=== PATIENT | male | born 1975 | race Caucasian/White ===

== ENCOUNTER 2017-07-21 15:29 | Inpatient (IN) | payer OTHER ==
[2017-07-21 16:25] VITALS: BMI 31.5
--- NOTE | 2017-07-21 16:43 | HP ---
COWS - Scale Resting Pulse: 1= [place] 81-100 Sweatin=Flushed/Facial Moisture Restless Observation: 1= Difficult to Sit Still Pupil Size: 2= Moderately Dilated Bone or Joint Aches: 1= Mild Discomfort Runny Nose/ Eye Tearin= Runny Nose/Eyes GI Upset > 30mins: 1= Stomach Cramp Tremor Observation: 1= Tremor [place], Not Seen Yawning Observation: 0= None Anxiety or Irritability: 2=Irritable/Anxious Goose Flesh Skin: 0=Smooth Skin COWS Score: 13 Admission [facility] Chief Complaint: Withdrawal sx. Allergies/Adverse Reactions: Allergies Allergy/AdvReac Type Severity Reaction Status Date / Time No Known Allergies Allergy Verified 07/21/17 16:38 History of Present Illness: 41 y/o man with a long hx. of opioid dependence is admitted for detox. Pt. denies previous detox. Pt. reports using Oxycodone since age 26 for pain And heroin started 5 yrs. ago. Exam Limitations: No Limitations - Ebola screening Have you traveled outside of the country in the last 21 days: No Have you had contact with anyone from an Ebola affected area: No Have you been sick,other than usual withdrawal symptoms: No Do you have a fever: No - Review of Systems Constitutional: Diaphoresis EENT: reports: Nose Congestion Respiratory: reports: No Symptoms reported Cardiac: reports: No Symptoms Reported GI: reports: Nausea, Abdominal cramping : reports: No Symptoms Reported Musculoskeletal: reports: Back Pain, Joint Pain Integumentary: reports: Sweating Neuro: reports: Tingling, Tremors Endocrine: reports: No Symptoms Reported Hematology: reports: No Symptoms Reported Psychiatric: reports: No Sypmtoms Reported Other Systems: Reviewed and Negative Patient History - Patient Medical History Hx Anemia: No Hx Asthma: No Hx Chronic Obstructive Pulmonary Disease (COPD): No Hx Cancer: No Hx Cardiac Disorders: No Hx Congestive Heart Failure: No Hx Hypertension: No Hx Hypercholesterolemia: No Hx Pacemaker: No HX Cerebrovascular Accident: No Hx Seizures: No Hx Dementia: No Hx Diabetes: No Hx Gastrointestinal Disorders: No Hx Liver Disease: No Hx Genitourinary Disorders: No Hx Sexually Transmitted Disorders: No Hx Renal Disease (ESRD): No Hx Thyroid Disease: No Hx Human Immunodeficiency Virus (HIV): No Hx Hepatitis C: No Hx Depression: No Hx Suicide Attempt: No Hx Bipolar Disorder: No Hx Schizophrenia: No - Patient Surgical History Past Surgical History: Yes Hx Breast Surgery: Yes (Gynecomastia) - PPD History Previous Implant?: Yes Documented Results: Negative w/o proof Implanted On Prior [facility] Admission?: No PPD to be Administered?: Yes - Smoking Cessation Smoking history: Current every day smoker Aproximately how many cigarettes per day: 10 Hx Chewing Tobacco Use: No Initiated information on smoking cessation: Yes 'Breaking Loose' booklet given: 07/21/17 - Substance & Tx. History Hx Alcohol Use: No Hx Substance Use: Yes Substance Use Type: Heroin Hx Substance Use Treatment: No - Substances Abused Heroin Route: Inhalation Frequency: Daily Amount used: 20-30 bags Age of first use: 36 Date of Last Use: 07/20/17 Oxycontin Route: Oral Frequency: Daily Amount used: 7 tabs of 30mg Age of first use: 26 Date of Last Use: 07/18/17 Family Disease History - Family Disease History Family History: Denies Admission Physical Exam [facility] - Vital Signs Vital Signs: Vital Signs - 24 hr 07/21/17 16:21 Temperature 97.1 F L Pulse Rate 93 H Respiratory 18 Rate Blood Pressure 139/78 - Physical General Appearance: Yes: Tremorous, Irritable, Sweating, Anxious HEENTM: Yes: Nasal Congestion, Rhinorrhea Respiratory: Yes: Chest Non-Tender, Lungs Clear, Normal Breath Sounds Neck: Yes: Supple Breast: Yes: Breast Exam Deferred Cardiology: Yes: Regular Rhythm, Regular Rate, S1, S2 Abdominal: Yes: Normal Bowel Sounds, Non Tender Genitourinary: Yes: Within Normal Limits Back: Yes: Within Normal Limits Musculoskeletal: Yes: Within Normal Limits Extremities: Yes: Tremors Neurological: Yes: Fully Oriented, Alert Integumentary: Yes: Diaphoresis Lymphatic: Yes: Within Normal Limits - Diagnostic (1) Opioid dependence with withdrawal Current Visit: Yes Status: Acute Cleared for Admission [facility] - Detox or Rehab [facility] Level of Care: Medically Managed Detox Regimen/Protocol: Methadone [facility] Breath Alcohol Content Breath Alcohol Content: 0 Urine Drug Screen - Results Drug Screen Negative: No Urine Drug Screen Results: EMMANUEL-Cocaine, OPI-Opiates, MTD-Methadone, OXY- Oxycodone
[2017-07-21] MEDS ORDERED: IBUPROFEN 400 MG TABLET (FP) PO PRN (17:00)
[2017-07-21] MEDS ORDERED: P-EPHED 60MG/TRIPROLIDI 2.5MG TABLET PO PRN (17:00)
[2017-07-21] MEDS ORDERED: guaiFENesin/D-METHORPHAN HB 10 ML UNIT-DOSE CUPS PO PRN (17:00)
[2017-07-21] MEDS ORDERED: MAGNESIUM CITRATE 300 ML BOTTLE PO PRN (17:00)
[2017-07-21] MEDS ORDERED: NICOTINE POLACRILEX 2 MG GUM BC PRN (17:00)
[2017-07-21] MEDS ORDERED: MAGNESIUM HYDROX 2400MG/30ML ORAL SUSPENSION 30 ML CUP PO PRN (17:00)
[2017-07-21] MEDS ORDERED: MAG HYDROX/AL HYDROX/SIMETH 30 ML UNIT-DOSE CUP PO PRN (17:00)
[2017-07-21] MEDS ORDERED: METHADONE HCL 10 MG TABLET (FOR DETOX USE ONLY) PO ONE ×2 (17:00→23:00)
[2017-07-21] MEDS ORDERED: LOPERAMIDE HCL 2 MG CAPSULE PO PRN (17:00)
[2017-07-21] MEDS ORDERED: MENTHOL/PHENOL 1 EACH UD MM PRN (17:00)
[2017-07-21] MEDS ORDERED: cloNIDine HCL 0.1 MG TABLET PO ONE (17:02)
[2017-07-21] MEDS ORDERED: METHADONE HCL 10 MG TABLET ONE (19:09)
[2017-07-21] MEDS: NICOTINE 21 MG/24 HOURS TOPICAL PATCH TD SCH (19:17)
[2017-07-21] MEDS: CYCLOBENZAPRINE HCL 10 MG TABLET (FP) PO SCH ×2 (19:18→22:28)
[2017-07-21] MEDS: diazePAM 5 MG TABLET PO PRN (19:19)
[2017-07-21] MEDS: cloNIDine HCL 0.1 MG TABLET PO SCH ×2 (19:20→22:28)
[2017-07-21] MEDS: THIAMINE HCL 100 MG TABLET (FP) PO SCH (22:28)
[2017-07-21] MEDS: hydrOXYzine PAMOATE 50 MG CAPSULE (FP) PO PRN (22:30)
[2017-07-22] MEDS: ACETAMINOPHEN 325 MG TABLET (FP) PO PRN (01:05)
[2017-07-22] MEDS: diazePAM 5 MG TABLET PO PRN ×4 (01:06→23:36)
[2017-07-22 01:48] LABS: URINE APPEARANCE CLEAR; URINE BILIRUBIN NEGATIVE (NEGATIVE); URINE BLOOD NEGATIVE (NEGATIVE); URINE COLOR STRAW; URINE GLUCOSE (UA) NEGATIVE (NEGATIVE); URINE KETONE NEGATIVE (NEGATIVE); URINE NITRITE NEGATIVE (NEGATIVE); URINE PROTEIN NEGATIVE (NEGATIVE); URINE UROBILINOGEN NEGATIVE mg/dL (0.2-1.0)
[2017-07-22] MEDS: CYCLOBENZAPRINE HCL 10 MG TABLET (FP) PO SCH ×3 (06:14→22:16)
--- NOTE | 2017-07-22 09:29 | EKG ---
Test Reason : Blood Pressure : / mmHG Vent. Rate : 077 BPM Atrial Rate : 077 BPM P-R Int : 150 ms QRS Dur : 084 ms QT Int : 368 ms P-R-T Axes : 066 035 052 degrees QTc Int : 416 ms SINUS RHYTHM WITH MARKED SINUS ARRHYTHMIA POSSIBLE LEFT ATRIAL ENLARGEMENT BORDERLINE ECG NO PREVIOUS ECGS AVAILABLE Confirmed by BENEDICTO CAMP MD ([id number]) on 07/22/2017 9:29:08 AM Referred By: Confirmed By:BENEDICTO CAMP MD
--- NOTE | 2017-07-22 09:43 | EKG ---
Test Reason : Blood Pressure : / mmHG Vent. Rate : 064 BPM Atrial Rate : 064 BPM P-R Int : 154 ms QRS Dur : 096 ms QT Int : 438 ms P-R-T Axes : 063 031 050 degrees QTc Int : 451 ms NORMAL SINUS RHYTHM WITH SINUS ARRHYTHMIA NORMAL ECG WHEN COMPARED WITH ECG OF 21-JUL-2017 20:07, NO SIGNIFICANT CHANGE WAS FOUND Confirmed by BENEDICTO CAMP MD ([id number]) on 07/22/2017 9:42:53 AM Referred By: Confirmed By:BENEDICTO CAMP MD
[2017-07-22] MEDS ORDERED: METHADONE HCL 10 MG TABLET (FOR DETOX USE ONLY) PO ONE (10:00)
[2017-07-22 10:16] LABS: MCH 28.8 pg (25.7-33.7); MCHC 33.7 g/dl (32.0-35.9); MEAN CELL VOLUME 85.6 fl (80-96); MEAN PLT VOLUME 8.8 fl (7.5-11.1); PLATELET COUNT 230 K/MM3 (134-434); RDW 13.2 % (11.9-15.9); WHITE BLOOD COUNT 10.6 K/mm3 (4.0-10.0)
[2017-07-22] MEDS: NICOTINE 21 MG/24 HOURS TOPICAL PATCH TD SCH (10:25)
[2017-07-22] MEDS: PRENATAL VITAMINS W/ FOLIC ACID TABLET (FP) PO SCH (10:25)
[2017-07-22] MEDS: cloNIDine HCL 0.1 MG TABLET PO SCH ×2 (10:25→22:16)
[2017-07-22 10:40] LABS: ALK PHOS 69 U/L (45-117); ANION GAP 9 (8-16); BILIRUBIN,TOTAL 0.4 mg/dL (0.2-1.0); CO2 29 mmol/L (21-32); GLUCOSE,RANDOM 107 mg/dL (74-106); SGOT/AST 16 U/L (15-37); SGPT/ALT 27 U/L (12-78); TOT PROT 7.6 g/dl (6.4-8.2)
--- NOTE | 2017-07-22 11:19 | PN ---
BHS COWS - Scale Resting Pulse: 0= [place] 80 or Below Sweatin= Chills/Flushing Restless Observation: 3= Extraneous Movement Pupil Size: 2= Moderately Dilated Bone or Joint Aches: 4=Acute Joint/Muscle Pain Runny Nose/ Eye Tearin= Nasal Congestion GI Upset > 30mins: 1= Stomach Cramp Tremor Observation of Outstretched Hands: 1= Tremor [place], Not Seen Yawning Observation: 1= 1-2x During Session Anxiety or Irritability: 1=Feels Anxious/Irritable Goose Flesh Skin: 0=Smooth Skin COWS Score: 15 BHS Progress Note (SOAP) Subjective: ANXIETY,SWEATS,MUSCLE ACHES,FATIGUE. Objective: 07/22/17 11:18 Vital Signs Temperature 96.6 F L 07/22/17 09:29 Pulse Rate 80 07/22/17 09:29 Respiratory Rate 18 07/22/17 09:29 Blood Pressure 132/78 07/22/17 09:29 O2 Sat by Pulse Oximetry (%) Laboratory Last Values WBC 10.6 K/mm3 (4.0-10.0) H 07/22/17 07:00 RBC 4.82 M/mm3 (4.00-5.60) 07/22/17 07:00 Hgb 13.9 GM/dL (11.7-16.9) 07/22/17 07:00 Hct 41.3 % (35.4-49) 07/22/17 07:00 MCV 85.6 fl (80-96) 07/22/17 07:00 MCH 28.8 pg (25.7-33.7) 07/22/17 07:00 MCHC 33.7 g/dl (32.0-35.9) 07/22/17 07:00 RDW 13.2 % (11.9-15.9) 07/22/17 07:00 Plt Count 230 K/MM3 (134-434) 07/22/17 07:00 MPV 8.8 fl (7.5-11.1) 07/22/17 07:00 Sodium 141 mmol/L (136-145) 07/22/17 07:00 Potassium 3.7 mmol/L (3.5-5.1) 07/22/17 07:00 Chloride 103 mmol/L (98-107) 07/22/17 07:00 Carbon Dioxide 29 mmol/L (21-32) 07/22/17 07:00 Anion Gap 9 (8-16) 07/22/17 07:00 BUN 9 mg/dL (7-18) 07/22/17 07:00 Creatinine 1.0 mg/dL (0.7-1.3) 07/22/17 07:00 Creat Clearance w eGFR > 60 (>60) 07/22/17 07:00 Random Glucose 107 mg/dL (74-106) H 07/22/17 07:00 Calcium 9.0 mg/dL (8.5-10.1) 07/22/17 07:00 Total Bilirubin 0.4 mg/dL (0.2-1.0) 07/22/17 07:00 AST 16 U/L (15-37) 07/22/17 07:00 ALT 27 U/L (12-78) 07/22/17 07:00 Alkaline Phosphatase 69 U/L (45-117) 07/22/17 07:00 Total Protein 7.6 g/dl (6.4-8.2) 07/22/17 07:00 Albumin 4.0 g/dl (3.4-5.0) 07/22/17 07:00 Urine Color Straw 07/21/17 18:33 Urine Appearance Clear 07/21/17 18:33 Urine pH 7.0 (5.0-8.0) 07/21/17 18:33 Ur Specific [place] 1.005 (1.001-1.035) 07/21/17 18:33 Urine Protein Negative (NEGATIVE) 07/21/17 18:33 Urine Glucose (UA) Negative (NEGATIVE) 07/21/17 18:33 Urine Ketones Negative (NEGATIVE) 07/21/17 18:33 Urine Blood Negative (NEGATIVE) 07/21/17 18:33 Urine Nitrite Negative (NEGATIVE) 07/21/17 18:33 Urine Bilirubin Negative (NEGATIVE) 07/21/17 18:33 Urine Urobilinogen Negative mg/dL (0.2-1.0) 07/21/17 18:33 Assessment: 07/22/17 11:18 WITHDRAWAL SX Plan: CONTINUE DETOX INCREASE PO FLUIDS.
[2017-07-22 11:55] LABS: URINE LEUK ESTERASE Negative (NEGATIVE)
[2017-07-22] MEDS: THIAMINE HCL 100 MG TABLET (FP) PO SCH (22:16)
[2017-07-23] MEDS: CYCLOBENZAPRINE HCL 10 MG TABLET (FP) PO SCH ×3 (05:51→22:35)
[2017-07-23] MEDS ORDERED: METHADONE HCL 5 MG TABLET (FOR DETOX USE ONLY) PO ONE (10:00)
[2017-07-23] MEDS: cloNIDine HCL 0.1 MG TABLET PO SCH ×2 (10:28→22:36)
[2017-07-23] MEDS: NICOTINE 21 MG/24 HOURS TOPICAL PATCH TD SCH (10:28)
[2017-07-23] MEDS: PRENATAL VITAMINS W/ FOLIC ACID TABLET (FP) PO SCH (10:28)
--- NOTE | 2017-07-23 11:57 | PN ---
BHS COWS - Scale Resting Pulse: 1= [place] 81-100 Sweatin= Chills/Flushing Restless Observation: 3= Extraneous Movement Pupil Size: 0= Normal to Room Light Bone or Joint Aches: 4=Acute Joint/Muscle Pain Runny Nose/ Eye Tearin= Nasal Congestion GI Upset > 30mins: 1= Stomach Cramp Tremor Observation of Outstretched Hands: 1= Tremor [place], Not Seen Yawning Observation: 1= 1-2x During Session Anxiety or Irritability: 2=Irritable/Anxious Goose Flesh Skin: 0=Smooth Skin COWS Score: 15 S Progress Note (SOAP) Subjective: ANXIETY,BACKACHE/LEG PAINS/CRAMPS. Objective: 07/23/17 11:57 Vital Signs Temperature 96.5 F L 07/23/17 10:22 Pulse Rate 94 H 07/23/17 10:22 Respiratory Rate 18 07/23/17 10:22 Blood Pressure 138/78 07/23/17 10:22 O2 Sat by Pulse Oximetry (%) Laboratory Last Values WBC 10.6 K/mm3 (4.0-10.0) H 07/22/17 07:00 RBC 4.82 M/mm3 (4.00-5.60) 07/22/17 07:00 Hgb 13.9 GM/dL (11.7-16.9) 07/22/17 07:00 Hct 41.3 % (35.4-49) 07/22/17 07:00 MCV 85.6 fl (80-96) 07/22/17 07:00 MCH 28.8 pg (25.7-33.7) 07/22/17 07:00 MCHC 33.7 g/dl (32.0-35.9) 07/22/17 07:00 RDW 13.2 % (11.9-15.9) 07/22/17 07:00 Plt Count 230 K/MM3 (134-434) 07/22/17 07:00 MPV 8.8 fl (7.5-11.1) 07/22/17 07:00 Sodium 141 mmol/L (136-145) 07/22/17 07:00 Potassium 3.7 mmol/L (3.5-5.1) 07/22/17 07:00 Chloride 103 mmol/L (98-107) 07/22/17 07:00 Carbon Dioxide 29 mmol/L (21-32) 07/22/17 07:00 Anion Gap 9 (8-16) 07/22/17 07:00 BUN 9 mg/dL (7-18) 07/22/17 07:00 Creatinine 1.0 mg/dL (0.7-1.3) 07/22/17 07:00 Creat Clearance w eGFR > 60 (>60) 07/22/17 07:00 Random Glucose 107 mg/dL (74-106) H 07/22/17 07:00 Calcium 9.0 mg/dL (8.5-10.1) 07/22/17 07:00 Total Bilirubin 0.4 mg/dL (0.2-1.0) 07/22/17 07:00 AST 16 U/L (15-37) 07/22/17 07:00 ALT 27 U/L (12-78) 07/22/17 07:00 Alkaline Phosphatase 69 U/L (45-117) 07/22/17 07:00 Total Protein 7.6 g/dl (6.4-8.2) 07/22/17 07:00 Albumin 4.0 g/dl (3.4-5.0) 07/22/17 07:00 Urine Color Straw 07/21/17 18:33 Urine Appearance Clear 07/21/17 18:33 Urine pH 7.0 (5.0-8.0) 07/21/17 18:33 Ur Specific [place] 1.005 (1.001-1.035) 07/21/17 18:33 Urine Protein Negative (NEGATIVE) 07/21/17 18:33 Urine Glucose (UA) Negative (NEGATIVE) 07/21/17 18:33 Urine Ketones Negative (NEGATIVE) 07/21/17 18:33 Urine Blood Negative (NEGATIVE) 07/21/17 18:33 Urine Nitrite Negative (NEGATIVE) 07/21/17 18:33 Urine Bilirubin Negative (NEGATIVE) 07/21/17 18:33 Urine Urobilinogen Negative mg/dL (0.2-1.0) 07/21/17 18:33 Ur Leukocyte Esterase Negative (NEGATIVE) 07/21/17 18:33 RPR Titer Nonreactive (NONREACTIVE) 07/22/17 07:00 Assessment: 07/23/17 11:57 WITHDRAWAL SX Plan: CONTINUE DETOX
[2017-07-23] MEDS: diazePAM 5 MG TABLET PO PRN ×3 (12:15→22:36)
[2017-07-23] MEDS: THIAMINE HCL 100 MG TABLET (FP) PO SCH (22:35)
[2017-07-23] MEDS: ACETAMINOPHEN 325 MG TABLET (FP) PO PRN (22:38)
[2017-07-24] MEDS: CYCLOBENZAPRINE HCL 10 MG TABLET (FP) PO SCH ×3 (05:58→22:20)
[2017-07-24] MEDS ORDERED: METHADONE HCL 5 MG TABLET (FOR DETOX USE ONLY) PO ONE (10:00)
[2017-07-24] MEDS: PRENATAL VITAMINS W/ FOLIC ACID TABLET (FP) PO SCH (10:23)
[2017-07-24] MEDS: cloNIDine HCL 0.1 MG TABLET PO SCH ×2 (10:23→22:20)
[2017-07-24] MEDS: NICOTINE 21 MG/24 HOURS TOPICAL PATCH TD SCH (10:24)
[2017-07-24] MEDS: diazePAM 5 MG TABLET PO PRN ×2 (10:24→16:58)
[2017-07-24] MEDS: ACETAMINOPHEN 325 MG TABLET (FP) PO PRN (10:47)
--- NOTE | 2017-07-24 10:50 | PN ---
BHS Progress Note (SOAP) Subjective: PT STATES "GETTING BETTER". DECREASED MUSCLE BODY ACHES,ANXIETY,SWEATS. Objective: 07/24/17 10:50 Vital Signs Temperature 98.0 F 07/24/17 09:55 Pulse Rate 109 H 07/24/17 09:55 Respiratory Rate 18 07/24/17 09:55 Blood Pressure 115/81 07/24/17 09:55 O2 Sat by Pulse Oximetry (%) Laboratory Last Values WBC 10.6 K/mm3 (4.0-10.0) H 07/22/17 07:00 RBC 4.82 M/mm3 (4.00-5.60) 07/22/17 07:00 Hgb 13.9 GM/dL (11.7-16.9) 07/22/17 07:00 Hct 41.3 % (35.4-49) 07/22/17 07:00 MCV 85.6 fl (80-96) 07/22/17 07:00 MCH 28.8 pg (25.7-33.7) 07/22/17 07:00 MCHC 33.7 g/dl (32.0-35.9) 07/22/17 07:00 RDW 13.2 % (11.9-15.9) 07/22/17 07:00 Plt Count 230 K/MM3 (134-434) 07/22/17 07:00 MPV 8.8 fl (7.5-11.1) 07/22/17 07:00 Sodium 141 mmol/L (136-145) 07/22/17 07:00 Potassium 3.7 mmol/L (3.5-5.1) 07/22/17 07:00 Chloride 103 mmol/L (98-107) 07/22/17 07:00 Carbon Dioxide 29 mmol/L (21-32) 07/22/17 07:00 Anion Gap 9 (8-16) 07/22/17 07:00 BUN 9 mg/dL (7-18) 07/22/17 07:00 Creatinine 1.0 mg/dL (0.7-1.3) 07/22/17 07:00 Creat Clearance w eGFR > 60 (>60) 07/22/17 07:00 Random Glucose 107 mg/dL (74-106) H 07/22/17 07:00 Calcium 9.0 mg/dL (8.5-10.1) 07/22/17 07:00 Total Bilirubin 0.4 mg/dL (0.2-1.0) 07/22/17 07:00 AST 16 U/L (15-37) 07/22/17 07:00 ALT 27 U/L (12-78) 07/22/17 07:00 Alkaline Phosphatase 69 U/L (45-117) 07/22/17 07:00 Total Protein 7.6 g/dl (6.4-8.2) 07/22/17 07:00 Albumin 4.0 g/dl (3.4-5.0) 07/22/17 07:00 Urine Color Straw 07/21/17 18:33 Urine Appearance Clear 07/21/17 18:33 Urine pH 7.0 (5.0-8.0) 07/21/17 18:33 Ur Specific [place] 1.005 (1.001-1.035) 07/21/17 18:33 Urine Protein Negative (NEGATIVE) 07/21/17 18:33 Urine Glucose (UA) Negative (NEGATIVE) 07/21/17 18:33 Urine Ketones Negative (NEGATIVE) 07/21/17 18:33 Urine Blood Negative (NEGATIVE) 07/21/17 18:33 Urine Nitrite Negative (NEGATIVE) 07/21/17 18:33 Urine Bilirubin Negative (NEGATIVE) 07/21/17 18:33 Urine Urobilinogen Negative mg/dL (0.2-1.0) 07/21/17 18:33 Ur Leukocyte Esterase Negative (NEGATIVE) 07/21/17 18:33 RPR Titer Nonreactive (NONREACTIVE) 07/22/17 07:00 Assessment: 07/24/17 10:50 NAD Plan: CONTINUE DETOX
[2017-07-24] MEDS: THIAMINE HCL 100 MG TABLET (FP) PO SCH (22:20)
[2017-07-24] MEDS: hydrOXYzine PAMOATE 50 MG CAPSULE (FP) PO PRN (22:21)
[2017-07-25] MEDS: CYCLOBENZAPRINE HCL 10 MG TABLET (FP) PO SCH ×3 (05:24→22:31)
[2017-07-25] MEDS ORDERED: METHADONE HCL 10 MG TABLET (FOR DETOX USE ONLY) PO ONE (10:00)
[2017-07-25] MEDS: PRENATAL VITAMINS W/ FOLIC ACID TABLET (FP) PO SCH (10:25)
[2017-07-25] MEDS: cloNIDine HCL 0.1 MG TABLET PO SCH ×2 (10:26→22:31)
[2017-07-25] MEDS: NICOTINE 21 MG/24 HOURS TOPICAL PATCH TD SCH (10:26)
--- NOTE | 2017-07-25 15:29 | PN ---
BHS Progress Note (SOAP) Subjective: Sweating, H/A. Objective: PT. A & O X 3. NO ACUTE DISTRESS. 07/25/17 15:28 Vital Signs Temperature 97.5 F L 07/25/17 14:53 Pulse Rate 90 07/25/17 14:53 Respiratory Rate 20 07/25/17 14:53 Blood Pressure 126/86 07/25/17 14:53 O2 Sat by Pulse Oximetry (%) Laboratory Tests 07/21/17 07/22/17 07/22/17 18:33 07:00 07:00 WBC 10.6 H RBC 4.82 Hgb 13.9 Hct 41.3 MCV 85.6 MCH 28.8 MCHC 33.7 RDW 13.2 Plt Count 230 MPV 8.8 Sodium 141 Potassium 3.7 Chloride 103 Carbon Dioxide 29 Anion Gap 9 BUN 9 Creatinine 1.0 Creat Clearance w eGFR > 60 Random Glucose 107 H Calcium 9.0 Total Bilirubin 0.4 AST 16 ALT 27 Alkaline Phosphatase 69 Total Protein 7.6 Albumin 4.0 Urine Color Straw Urine Appearance Clear Urine pH 7.0 Ur Specific [place] 1.005 Urine Protein Negative Urine Glucose (UA) Negative Urine Ketones Negative Urine Blood Negative Urine Nitrite Negative Urine Bilirubin Negative Urine Urobilinogen Negative Ur Leukocyte Esterase Negative RPR Titer 07/22/17 07:00 WBC RBC Hgb Hct MCV MCH MCHC RDW Plt Count MPV Sodium Potassium Chloride Carbon Dioxide Anion Gap BUN Creatinine Creat Clearance w eGFR Random Glucose Calcium Total Bilirubin AST ALT Alkaline Phosphatase Total Protein Albumin Urine Color Urine Appearance Urine pH Ur Specific [place] Urine Protein Urine Glucose (UA) Urine Ketones Urine Blood Urine Nitrite Urine Bilirubin Urine Urobilinogen Ur Leukocyte Esterase RPR Titer Nonreactive LABS NOTED. Assessment: 07/25/17 15:28 WITHDRAWAL SYMPTOMS. Plan: CONTINUE DETOX.
[2017-07-25] MEDS: THIAMINE HCL 100 MG TABLET (FP) PO SCH (22:31)
[2017-07-25] MEDS: hydrOXYzine PAMOATE 50 MG CAPSULE (FP) PO PRN (22:31)
[2017-07-26] MEDS: CYCLOBENZAPRINE HCL 10 MG TABLET (FP) PO SCH (05:52)
[2017-07-26] MEDS ORDERED: METHADONE HCL 5 MG TABLET (FOR DETOX USE ONLY) PO ONE (06:00)
--- NOTE | 2017-07-26 09:40 | DS ---
[facility] Detox Discharge Summary Admission Date: 07/21/17 Discharge Date: 07/26/17 - History Present History: Opioid Dependence Additional Comments: DETOX COMPLETED. ALERT O X 3. NAD. PT TO FOLLOW UP WITH PCP FOR MEDICAL MANAGEMENT NEEDED. Pertinent Past History: UNREMARKABLE. DENIES PMHx - Physical Exam Results Vital Signs: Vital Signs Temperature 97.1 F L 07/26/17 06:00 Pulse Rate 66 07/26/17 06:00 Respiratory Rate 18 07/26/17 06:00 Blood Pressure 117/76 07/26/17 06:00 O2 Sat by Pulse Oximetry (%) Pertinent Admission Physical Exam Findings: WITHDRAWAL SX Laboratory Last Values WBC 10.6 K/mm3 (4.0-10.0) H 07/22/17 07:00 RBC 4.82 M/mm3 (4.00-5.60) 07/22/17 07:00 Hgb 13.9 GM/dL (11.7-16.9) 07/22/17 07:00 Hct 41.3 % (35.4-49) 07/22/17 07:00 MCV 85.6 fl (80-96) 07/22/17 07:00 MCH 28.8 pg (25.7-33.7) 07/22/17 07:00 MCHC 33.7 g/dl (32.0-35.9) 07/22/17 07:00 RDW 13.2 % (11.9-15.9) 07/22/17 07:00 Plt Count 230 K/MM3 (134-434) 07/22/17 07:00 MPV 8.8 fl (7.5-11.1) 07/22/17 07:00 Sodium 141 mmol/L (136-145) 07/22/17 07:00 Potassium 3.7 mmol/L (3.5-5.1) 07/22/17 07:00 Chloride 103 mmol/L (98-107) 07/22/17 07:00 Carbon Dioxide 29 mmol/L (21-32) 07/22/17 07:00 Anion Gap 9 (8-16) 07/22/17 07:00 BUN 9 mg/dL (7-18) 07/22/17 07:00 Creatinine 1.0 mg/dL (0.7-1.3) 07/22/17 07:00 Creat Clearance w eGFR > 60 (>60) 07/22/17 07:00 Random Glucose 107 mg/dL (74-106) H 07/22/17 07:00 Calcium 9.0 mg/dL (8.5-10.1) 07/22/17 07:00 Total Bilirubin 0.4 mg/dL (0.2-1.0) 07/22/17 07:00 AST 16 U/L (15-37) 07/22/17 07:00 ALT 27 U/L (12-78) 07/22/17 07:00 Alkaline Phosphatase 69 U/L (45-117) 07/22/17 07:00 Total Protein 7.6 g/dl (6.4-8.2) 07/22/17 07:00 Albumin 4.0 g/dl (3.4-5.0) 07/22/17 07:00 Urine Color Straw 07/21/17 18:33 Urine Appearance Clear 07/21/17 18:33 Urine pH 7.0 (5.0-8.0) 07/21/17 18:33 Ur Specific [place] 1.005 (1.001-1.035) 07/21/17 18:33 Urine Protein Negative (NEGATIVE) 07/21/17 18:33 Urine Glucose (UA) Negative (NEGATIVE) 07/21/17 18:33 Urine Ketones Negative (NEGATIVE) 07/21/17 18:33 Urine Blood Negative (NEGATIVE) 07/21/17 18:33 Urine Nitrite Negative (NEGATIVE) 07/21/17 18:33 Urine Bilirubin Negative (NEGATIVE) 07/21/17 18:33 Urine Urobilinogen Negative mg/dL (0.2-1.0) 07/21/17 18:33 Ur Leukocyte Esterase Negative (NEGATIVE) 07/21/17 18:33 RPR Titer Nonreactive (NONREACTIVE) 07/22/17 07:00 - Treatment Hospital Course: Detox Protocol Followed, Detoxed Safely, Responded well, Discharged Condition Good - Medication Discharge Medications: Ambulatory Orders NK [No Known Home Medication] 07/21/17 - Diagnosis (1) Opioid dependence with withdrawal Current Visit: Yes Status: Acute - AMA Did Patient Leave Against Medical Advice: No
[2017-07-26] MEDS: cloNIDine HCL 0.1 MG TABLET PO SCH (10:17)
[2017-07-26] MEDS: NICOTINE 21 MG/24 HOURS TOPICAL PATCH TD SCH (10:18)
[2017-07-26] MEDS: PRENATAL VITAMINS W/ FOLIC ACID TABLET (FP) PO SCH (10:18)
[2017-07-26 10:30] VITALS: BP 132/83; PULSE 105; TEMP 96.9
== END 2017-07-26 12:05 | disposition other institution (70) | DRG 773 ==
LOC: YASAS 15:29 → Y3N 18:27
PROVIDERS: ADMIT Internal Medicine; ATTEND Internal Medicine
PROC: HZ2ZZZZ Detoxification Services for Substance Abuse Treatment (ICD-10-PCS; principal; 2017-07-21)
DX: F11.23 Opioid dependence with withdrawal (principal); F17.210 Nicotine dependence, cigarettes, uncomplicated
CPT/HCPCS: 36415; 80053; 81003; 85027; 86593; 93005; 93010

== ENCOUNTER 2017-07-26 12:19 | Inpatient (IN) | payer OTHER ==
--- NOTE | 2017-07-26 12:44 | HP ---
[facility] Re[facility] Assess/Revision - Admission History Admitted to Rehab from: [facility] Date of Admission to Rehab: 07/26/17 - Findings Detox History & Physical reviewed: Yes Concur with findings: Yes Comments/Additional Findings: for rehab as protocol Inpatient Rehab Admission - Initial Determination Are CD services needed?: Yes Free of communicable disease: Yes Not in need of hospitalization: Yes - Rehab Admission Criteria Previous failed treatment: Yes Poor recovery environment: Yes Patient is meeting Inpatient Rehab admission criteria:: Yes
[2017-07-26] MEDS ORDERED: LOPERAMIDE HCL 2 MG CAPSULE PO PRN (12:45)
[2017-07-26] MEDS ORDERED: MAGNESIUM CITRATE 300 ML BOTTLE PO PRN (12:45)
[2017-07-26] MEDS ORDERED: MENTHOL/PHENOL 1 EACH UD MM PRN (12:45)
[2017-07-26] MEDS ORDERED: MAG HYDROX/AL HYDROX/SIMETH 30 ML UNIT-DOSE CUP PO PRN (12:45)
[2017-07-26] MEDS ORDERED: IBUPROFEN 400 MG TABLET (FP) PO PRN (12:45)
[2017-07-26] MEDS ORDERED: P-EPHED 60MG/TRIPROLIDI 2.5MG TABLET PO PRN (12:45)
[2017-07-26] MEDS ORDERED: guaiFENesin/D-METHORPHAN HB 10 ML UNIT-DOSE CUPS PO PRN (12:45)
[2017-07-26] MEDS ORDERED: MAGNESIUM HYDROX 2400MG/30ML ORAL SUSPENSION 30 ML CUP PO PRN (12:45)
--- NOTE | 2017-07-26 15:39 | HP ---
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 Medical History: reports chronic back pain, smokes cigarettes 10 a day. Psychiatric History: reports as child had a few sessions with a psychiatrist when his parents . Physical/Sexual Abuse/Trauma History: denies history of sexual, physical and verbal abuse. Allergies/Adverse Reactions: Allergies Allergy/AdvReac Type Severity Reaction Status Date / Time No Known Allergies Allergy Verified 07/21/17 18:15 Date of last physical exam: 07/21/17 Concur with the findings of this exam: Yes - Substance Abuse/Tx History Hx Alcohol Use: No Hx Substance Use: Yes Substance Use Type: Heroin (20-25 bags a day, started 5 years ago), Opiates ( oxycontin daily 7 tabs of 30 mg a day.) Hx Substance Use Treatment: No (first detox/rehab) Mental Status Exam - Mental Status Exam Alert and Oriented to: Time, Place, Person Cognitive Function: Good Patient Appearance: Well Groomed Mood: Sad, Anxious Affect: Appropriate, Mood Congruent Patient Behavior: Appropriate, Cooperative Speech Pattern: Clear, Appropriate Voice Loudness: Normal Thought Process: Intact, Goal Oriented Thought Disorder: Not Present Hallucinations: Denies Suicidal Ideation: Denies Homicidal Ideation: Denies Insight/Judgement: Fair Sleep: Poorly, Difficulty falling asleep Appetite: Fair Muscle strength/Tone: Normal Gait/Station: Normal Psychiatric Findings - Problem List ([place] 1, 2,3) (1) Opioid dependence Current Visit: Yes Status: Acute (2) Nicotine dependence Current Visit: Yes Status: Acute (3) Opioid-induced sleep disorder Current Visit: Yes Status: Acute - Initial Treatment Plan Initial Treatment Plan: indications/properties of Belsomra discussed, patient agreed with careplans, monitor rpogress as needed.
[2017-07-26] MEDS: THIAMINE HCL 100 MG TABLET (FP) PO SCH (21:58)
[2017-07-26] MEDS: SUVOREXANT 10 MG TABLET PO PRN (21:58)
[2017-07-27] MEDS: PRENATAL VITAMINS W/ FOLIC ACID TABLET (FP) PO SCH (10:45)
[2017-07-27] MEDS: NICOTINE 21 MG/24 HOURS TOPICAL PATCH TD SCH (10:47)
[2017-07-27 12:33] LABS: HIV 1 & 2 AB NEGATIVE; HIV 1 AGp24 NEGATIVE
[2017-07-27] MEDS: THIAMINE HCL 100 MG TABLET (FP) PO SCH (21:39)
[2017-07-27] MEDS: SUVOREXANT 10 MG TABLET PO PRN (21:40)
[2017-07-28] MEDS: PRENATAL VITAMINS W/ FOLIC ACID TABLET (FP) PO SCH (10:48)
[2017-07-28] MEDS: NICOTINE 21 MG/24 HOURS TOPICAL PATCH TD SCH (10:50)
[2017-07-28] MEDS: SUVOREXANT 10 MG TABLET PO PRN (21:48)
[2017-07-28] MEDS: THIAMINE HCL 100 MG TABLET (FP) PO SCH (21:48)
[2017-07-29] MEDS: ACETAMINOPHEN 325 MG TABLET (FP) PO PRN (06:21)
[2017-07-29] MEDS: PRENATAL VITAMINS W/ FOLIC ACID TABLET (FP) PO SCH (10:29)
[2017-07-29] MEDS: NICOTINE 21 MG/24 HOURS TOPICAL PATCH TD SCH (10:30)
[2017-07-29] MEDS ORDERED: NICOTINE 21 MG/24 HOURS TOPICAL PATCH TD SCH (16:28)
[2017-07-29] MEDS: NICOTINE 7 MG/24 HOURS TOPICAL PATCH TD SCH (18:05)
[2017-07-29] MEDS: THIAMINE HCL 100 MG TABLET (FP) PO SCH (21:59)
[2017-07-29] MEDS: hydrOXYzine PAMOATE 50 MG CAPSULE (FP) PO PRN (22:00)
[2017-07-30] MEDS: NICOTINE 7 MG/24 HOURS TOPICAL PATCH TD SCH (10:25)
[2017-07-30] MEDS: PRENATAL VITAMINS W/ FOLIC ACID TABLET (FP) PO SCH (10:25)
--- NOTE | 2017-07-30 11:34 | PN ---
Psychiatric Progress Note Vital Signs: Vital Signs Period Temp Pulse Resp BP Sys/[place] Pulse Ox Last 24 Hr 98.1 F 83 16-18 123/83 Date of Session: 07/30/17 Chief Complaint:: progress update HPI: Patient is addressing opioid, nicotine dependence comrobid opioid induced sleep disorder. ROS: WNL Current Medications: Active Medications Generic Name Dose Route Start Last Admin Trade Name Freq PRN Reason Stop Dose Admin Acetaminophen 650 mg 07/26/17 12:45 07/29/17 06:21 Tylenol - PO 650 mg Q4H PRN Administration FEVER OR PAIN Al Hydroxide/Mg Hydroxide 30 ml 07/26/17 12:45 Mylanta Oral Suspension - PO Q6H PRN DYSPEPSIA Eucalyptus/Menthol/Phenol/Sorbitol 1 each 07/26/17 12:45 Cepastat Lozenge - MM Q4H PRN SORE THROAT Guaifenesin 10 ml 07/26/17 12:45 Robitussin Dm - PO Q6H PRN COUGH Hydroxyzine Pamoate 50 mg 07/26/17 12:45 07/29/17 22:00 Vistaril - PO 50 mg Q4H PRN Administration AGITATION Ibuprofen 400 mg 07/26/17 12:45 07/27/17 20:25 Motrin - PO 400 mg Q6H PRN Administration PAIN Loperamide HCl 4 mg 07/26/17 12:45 Imodium - PO Q6H PRN DIARRHEA Magnesium Citrate 300 ml 07/26/17 12:45 Citroma - PO Q48H PRN CONSTIPATION Magnesium Hydroxide 30 ml 07/26/17 12:45 Milk Of Magnesia - PO DAILY PRN CONSTIPATION Nicotine 7 mg 07/29/17 17:15 07/30/17 10:25 Nicoderm Patch - TD Not Given DAILY [place] Multivit/Folic Acid/Iron 1 tab 07/27/17 10:00 07/30/17 10:25 Vitamins (Sjr) - PO 1 tab DAILY [place] Administration Pseudoephedrine/Triprolidine 1 combo 07/26/17 12:45 Actifed - PO TID PRN NASAL CONGESTION Quetiapine Fumarate 25 mg 07/30/17 11:30 Seroquel - PO HS [place] Thiamine HCl 100 mg 07/26/17 22:00 07/29/17 21:59 Vitamin B1 - PO 100 mg HS [place] Administration Current Side Effect: No Lab tests ordered: No Lab tests reviewed: Yes Provider note:: Patient he is unable to sleep, Belsomra not affective, states he gets very anxious and habing racing thoughts which keep him up all night, next day he feels fatiqued. Patient understands that all this symptoms the negative consequences of his drug use. Reveiwed properties and indications of Seroquel with the patient, he agreed with careplan will add 25 mg po hs, continue to monitor progress. Total face to face time:: 25 Mental Status Exam - Mental Status Exam Alert and Oriented to: Time, Place, Person Cognitive Function: Grossly Intact Patient Appearance: Well Groomed Mood: Sad, Anxious Affect: Appropriate, Mood Congruent Patient Behavior: Appropriate, Cooperative Speech Pattern: Clear, Appropriate Voice Loudness: Normal Thought Process: Intact, Goal Oriented Thought Disorder: Not Present Hallucinations: Denies Suicidal Ideation: Denies Homicidal Ideation: Denies Insight/Judgement: Fair Sleep: Poorly, Difficulty falling asleep Appetite: Fair Muscle strength/Tone: Normal Gait/Station: Normal Psychiatric Treatment Plan - Problem List (1) Opioid dependence Current Visit: Yes (2) Nicotine dependence Current Visit: Yes (3) Opioid-induced sleep disorder Current Visit: Yes (4) Opioid-induced mood disorder Current Visit: Yes
[2017-07-30] MEDS: THIAMINE HCL 100 MG TABLET (FP) PO SCH (21:45)
[2017-07-30] MEDS: QUEtiapine FUMARATE 25 MG TABLET (FP) PO SCH (21:45)
[2017-07-31] MEDS: ACETAMINOPHEN 325 MG TABLET (FP) PO PRN (00:34)
[2017-07-31] MEDS: hydrOXYzine PAMOATE 50 MG CAPSULE (FP) PO PRN ×2 (00:36→21:52)
[2017-07-31] MEDS: NICOTINE 7 MG/24 HOURS TOPICAL PATCH TD SCH (10:23)
[2017-07-31] MEDS: PRENATAL VITAMINS W/ FOLIC ACID TABLET (FP) PO SCH (10:23)
[2017-07-31] MEDS: QUEtiapine FUMARATE 25 MG TABLET (FP) PO SCH (21:51)
[2017-07-31] MEDS: THIAMINE HCL 100 MG TABLET (FP) PO SCH (21:51)
[2017-08-01] MEDS: PRENATAL VITAMINS W/ FOLIC ACID TABLET (FP) PO SCH (10:41)
[2017-08-01] MEDS: NICOTINE 7 MG/24 HOURS TOPICAL PATCH TD SCH (10:41)
--- NOTE | 2017-08-01 12:49 | PN ---
[facility] Progress Note Note: Patient reports he still unable to sleep well, thinking a lot , Seroquel well tolerated, will increase from 25 mg to 75, continue to monitor progress.
[2017-08-01] MEDS: QUEtiapine FUMARATE 25 MG TABLET (FP) PO SCH (21:44)
[2017-08-01] MEDS: THIAMINE HCL 100 MG TABLET (FP) PO SCH (21:44)
[2017-08-02] MEDS: NICOTINE 7 MG/24 HOURS TOPICAL PATCH TD SCH (10:17)
[2017-08-02] MEDS: PRENATAL VITAMINS W/ FOLIC ACID TABLET (FP) PO SCH (10:17)
[2017-08-02] MEDS: THIAMINE HCL 100 MG TABLET (FP) PO SCH (21:40)
[2017-08-02] MEDS: QUEtiapine FUMARATE 25 MG TABLET (FP) PO SCH (21:40)
[2017-08-03] MEDS: ACETAMINOPHEN 325 MG TABLET (FP) PO PRN (04:03)
[2017-08-03] MEDS: PRENATAL VITAMINS W/ FOLIC ACID TABLET (FP) PO SCH (10:13)
[2017-08-03] MEDS: NICOTINE 7 MG/24 HOURS TOPICAL PATCH TD SCH (10:14)
[2017-08-03] MEDS: QUEtiapine FUMARATE 25 MG TABLET (FP) PO SCH (21:47)
[2017-08-03] MEDS: THIAMINE HCL 100 MG TABLET (FP) PO SCH (21:47)
[2017-08-04] MEDS: PRENATAL VITAMINS W/ FOLIC ACID TABLET (FP) PO SCH (10:39)
[2017-08-04] MEDS: NICOTINE 7 MG/24 HOURS TOPICAL PATCH TD SCH (10:39)
[2017-08-04] MEDS: QUEtiapine FUMARATE 25 MG TABLET (FP) PO SCH (21:47)
[2017-08-04] MEDS: THIAMINE HCL 100 MG TABLET (FP) PO SCH (21:47)
[2017-08-05] MEDS: hydrOXYzine PAMOATE 50 MG CAPSULE (FP) PO PRN (02:45)
[2017-08-05] MEDS: PRENATAL VITAMINS W/ FOLIC ACID TABLET (FP) PO SCH (10:33)
[2017-08-05] MEDS: NICOTINE 7 MG/24 HOURS TOPICAL PATCH TD SCH (10:33)
[2017-08-05] MEDS: THIAMINE HCL 100 MG TABLET (FP) PO SCH (21:47)
[2017-08-05] MEDS: QUEtiapine FUMARATE 25 MG TABLET (FP) PO SCH (21:47)
[2017-08-06] MEDS: NICOTINE 7 MG/24 HOURS TOPICAL PATCH TD SCH (10:51)
[2017-08-06] MEDS: PRENATAL VITAMINS W/ FOLIC ACID TABLET (FP) PO SCH (10:51)
[2017-08-06] MEDS: THIAMINE HCL 100 MG TABLET (FP) PO SCH (21:52)
[2017-08-06] MEDS: QUEtiapine FUMARATE 25 MG TABLET (FP) PO SCH (21:53)
[2017-08-07] MEDS: PRENATAL VITAMINS W/ FOLIC ACID TABLET (FP) PO SCH (10:43)
[2017-08-07] MEDS: NICOTINE 7 MG/24 HOURS TOPICAL PATCH TD SCH (10:43)
[2017-08-07] MEDS: QUEtiapine FUMARATE 25 MG TABLET (FP) PO SCH (21:36)
[2017-08-07] MEDS: THIAMINE HCL 100 MG TABLET (FP) PO SCH (21:36)
[2017-08-08] MEDS: PRENATAL VITAMINS W/ FOLIC ACID TABLET (FP) PO SCH (10:47)
[2017-08-08] MEDS: NICOTINE 7 MG/24 HOURS TOPICAL PATCH TD SCH (10:47)
[2017-08-08] MEDS: THIAMINE HCL 100 MG TABLET (FP) PO SCH (21:40)
[2017-08-08] MEDS: QUEtiapine FUMARATE 25 MG TABLET (FP) PO SCH (21:41)
[2017-08-09] MEDS: PRENATAL VITAMINS W/ FOLIC ACID TABLET (FP) PO SCH (10:22)
[2017-08-09] MEDS: NICOTINE 7 MG/24 HOURS TOPICAL PATCH TD SCH (10:23)
[2017-08-09] MEDS: THIAMINE HCL 100 MG TABLET (FP) PO SCH (21:35)
[2017-08-09] MEDS: QUEtiapine FUMARATE 25 MG TABLET (FP) PO SCH (21:35)
[2017-08-10] MEDS: NICOTINE 7 MG/24 HOURS TOPICAL PATCH TD SCH (10:34)
[2017-08-10] MEDS: PRENATAL VITAMINS W/ FOLIC ACID TABLET (FP) PO SCH (10:34)
[2017-08-10] MEDS: THIAMINE HCL 100 MG TABLET (FP) PO SCH (21:55)
[2017-08-10] MEDS: QUEtiapine FUMARATE 25 MG TABLET (FP) PO SCH (21:55)
[2017-08-11] MEDS: PRENATAL VITAMINS W/ FOLIC ACID TABLET (FP) PO SCH (10:42)
[2017-08-11] MEDS: NICOTINE 7 MG/24 HOURS TOPICAL PATCH TD SCH (10:43)
[2017-08-11] MEDS: THIAMINE HCL 100 MG TABLET (FP) PO SCH (21:37)
[2017-08-11] MEDS: QUEtiapine FUMARATE 25 MG TABLET (FP) PO SCH (21:37)
[2017-08-12] MEDS: NICOTINE 7 MG/24 HOURS TOPICAL PATCH TD SCH (10:51)
[2017-08-12] MEDS: PRENATAL VITAMINS W/ FOLIC ACID TABLET (FP) PO SCH (10:51)
[2017-08-12] MEDS: THIAMINE HCL 100 MG TABLET (FP) PO SCH (22:05)
[2017-08-12] MEDS: QUEtiapine FUMARATE 25 MG TABLET (FP) PO SCH (22:05)
--- NOTE | 2017-08-13 10:14 | PN ---
Psychiatric Progress Note Vital Signs: Vital Signs Period Temp Pulse Resp BP Sys/Santana Pulse Ox Last 24 Hr 98.0 F 84 18-18 121/64 Date of Session: 08/13/17 Chief Complaint:: progress update HPI: Patient is addressing opioid, nicotine dependence comrobid opioid induced sleep disorder. ROS: WNL Current Medications: Active Medications Generic Name Dose Route Start Last Admin Trade Name Freq PRN Reason Stop Dose Admin Acetaminophen 650 mg 07/26/17 12:45 08/03/17 04:03 Tylenol - PO 650 mg Q4H PRN Administration FEVER OR PAIN Al Hydroxide/Mg Hydroxide 30 ml 07/26/17 12:45 Mylanta Oral Suspension - PO Q6H PRN DYSPEPSIA Eucalyptus/Menthol/Phenol/Sorbitol 1 each 07/26/17 12:45 Cepastat Lozenge - MM Q4H PRN SORE THROAT Guaifenesin 10 ml 07/26/17 12:45 Robitussin Dm - PO Q6H PRN COUGH Hydroxyzine Pamoate 50 mg 07/26/17 12:45 08/05/17 02:45 Vistaril - PO 50 mg Q4H PRN Administration AGITATION Ibuprofen 400 mg 07/26/17 12:45 07/27/17 20:25 Motrin - PO 400 mg Q6H PRN Administration PAIN Loperamide HCl 4 mg 07/26/17 12:45 Imodium - PO Q6H PRN DIARRHEA Magnesium Citrate 300 ml 07/26/17 12:45 Citroma - PO Q48H PRN CONSTIPATION Magnesium Hydroxide 30 ml 07/26/17 12:45 Milk Of Magnesia - PO DAILY PRN CONSTIPATION Nicotine 7 mg 07/29/17 17:15 08/12/17 10:51 Nicoderm Patch - TD Not Given DAILY [place] Multivit/Folic Acid/Iron 1 tab 07/27/17 10:00 08/12/17 10:51 Vitamins ([facility]) - PO 1 tab DAILY [place] Administration Pseudoephedrine/Triprolidine 1 combo 07/26/17 12:45 Actifed - PO TID PRN NASAL CONGESTION Quetiapine Fumarate 50 mg 08/13/17 10:12 Seroquel - PO HS [place] Thiamine HCl 100 mg 07/26/17 22:00 08/12/17 22:05 Vitamin B1 - PO 100 mg HS [place] Administration Medication(s) Change(s): decrease Seroquel 50 mg po hs Current Side Effect: No Lab tests ordered: No Lab tests reviewed: Yes Provider note:: Patient was seen today, he requested to tape off Seroquel, think it might affect his refferal and aftercare plans, he reports the medication is effective, but he does not want to take it after his discharge, discussed with the patient treatment plan and he agreed with. Continue to monitor progress. Total face to face time:: 15 Mental Status Exam - Mental Status Exam Alert and Oriented to: Time, Place, Person Cognitive Function: Good Patient Appearance: Well Groomed Mood: Hopeful Affect: Appropriate, Mood Congruent Patient Behavior: Appropriate, Cooperative Speech Pattern: Clear, Appropriate Voice Loudness: Normal Thought Process: Intact, Goal Oriented Thought Disorder: Not Present Hallucinations: Denies Suicidal Ideation: Denies Homicidal Ideation: Denies Insight/Judgement: Fair Sleep: Fair Appetite: Fair Muscle strength/Tone: Normal Gait/Station: Normal Psychiatric Treatment Plan - Problem List (1) Opioid dependence Current Visit: Yes (2) Nicotine dependence Current Visit: Yes (3) Opioid-induced sleep disorder Current Visit: Yes (4) Opioid-induced mood disorder Current Visit: Yes
[2017-08-13] MEDS: PRENATAL VITAMINS W/ FOLIC ACID TABLET (FP) PO SCH (10:42)
[2017-08-13] MEDS: NICOTINE 7 MG/24 HOURS TOPICAL PATCH TD SCH (10:42)
[2017-08-13] MEDS: THIAMINE HCL 100 MG TABLET (FP) PO SCH (22:04)
[2017-08-13] MEDS: QUEtiapine FUMARATE 50 MG TABLET PO SCH (22:05)
[2017-08-14] MEDS: PRENATAL VITAMINS W/ FOLIC ACID TABLET (FP) PO SCH (10:50)
[2017-08-14] MEDS: NICOTINE 7 MG/24 HOURS TOPICAL PATCH TD SCH (10:50)
[2017-08-14] MEDS: QUEtiapine FUMARATE 50 MG TABLET PO SCH (21:47)
[2017-08-14] MEDS: THIAMINE HCL 100 MG TABLET (FP) PO SCH (21:47)
[2017-08-15] MEDS: NICOTINE 7 MG/24 HOURS TOPICAL PATCH TD SCH (10:12)
[2017-08-15] MEDS: PRENATAL VITAMINS W/ FOLIC ACID TABLET (FP) PO SCH (10:12)
[2017-08-15] MEDS: THIAMINE HCL 100 MG TABLET (FP) PO SCH (21:54)
[2017-08-15] MEDS: QUEtiapine FUMARATE 50 MG TABLET PO SCH (21:55)
[2017-08-16] MEDS: PRENATAL VITAMINS W/ FOLIC ACID TABLET (FP) PO SCH (10:22)
[2017-08-16] MEDS: NICOTINE 7 MG/24 HOURS TOPICAL PATCH TD SCH (10:23)
[2017-08-16] MEDS: QUEtiapine FUMARATE 50 MG TABLET PO SCH (22:19)
[2017-08-16] MEDS: THIAMINE HCL 100 MG TABLET (FP) PO SCH (22:19)
[2017-08-17] MEDS: NICOTINE 7 MG/24 HOURS TOPICAL PATCH TD SCH (10:08)
[2017-08-17] MEDS: PRENATAL VITAMINS W/ FOLIC ACID TABLET (FP) PO SCH (10:08)
[2017-08-17] MEDS: QUEtiapine FUMARATE 50 MG TABLET PO SCH (21:53)
[2017-08-17] MEDS: THIAMINE HCL 100 MG TABLET (FP) PO SCH (21:53)
[2017-08-18] MEDS: NICOTINE 7 MG/24 HOURS TOPICAL PATCH TD SCH (10:13)
[2017-08-18] MEDS: PRENATAL VITAMINS W/ FOLIC ACID TABLET (FP) PO SCH (10:13)
[2017-08-18] MEDS: THIAMINE HCL 100 MG TABLET (FP) PO SCH (21:48)
[2017-08-18] MEDS: QUEtiapine FUMARATE 50 MG TABLET PO SCH (21:48)
[2017-08-19] MEDS: NICOTINE 7 MG/24 HOURS TOPICAL PATCH TD SCH (10:34)
[2017-08-19] MEDS: PRENATAL VITAMINS W/ FOLIC ACID TABLET (FP) PO SCH (10:34)
[2017-08-19] MEDS: THIAMINE HCL 100 MG TABLET (FP) PO SCH (21:50)
[2017-08-19] MEDS: QUEtiapine FUMARATE 50 MG TABLET PO SCH (21:50)
[2017-08-20] MEDS: PRENATAL VITAMINS W/ FOLIC ACID TABLET (FP) PO SCH (10:13)
[2017-08-20] MEDS: NICOTINE 7 MG/24 HOURS TOPICAL PATCH TD SCH (10:14)
[2017-08-20] MEDS: THIAMINE HCL 100 MG TABLET (FP) PO SCH (21:32)
[2017-08-20] MEDS: QUEtiapine FUMARATE 50 MG TABLET PO SCH (21:32)
[2017-08-21 07:02] VITALS: BP 108/65; PULSE 93; TEMP 98.2
[2017-08-21] MEDS: PRENATAL VITAMINS W/ FOLIC ACID TABLET (FP) PO SCH (09:58)
[2017-08-21] MEDS: NICOTINE 7 MG/24 HOURS TOPICAL PATCH TD SCH (09:58)
--- NOTE | 2017-08-21 10:00 | PN ---
Psychiatric Progress Note Vital Signs: Vital Signs Period Temp Pulse Resp BP Sys/Santana Pulse Ox Last 24 Hr 98.2 F 93 18-18 108/65 Date of Session: 08/21/17 Chief Complaint:: discharge visit HPI: Patient is addressing opioid, nicotine dependence comrobid opioid induced sleep disorder. ROS: WNL Current Medications: Active Medications Generic Name Dose Route Start Last Admin Trade Name Freq PRN Reason Stop Dose Admin Acetaminophen 650 mg 07/26/17 12:45 08/03/17 04:03 Tylenol - PO 650 mg Q4H PRN Administration FEVER OR PAIN Al Hydroxide/Mg Hydroxide 30 ml 07/26/17 12:45 Mylanta Oral Suspension - PO Q6H PRN DYSPEPSIA Eucalyptus/Menthol/Phenol/Sorbitol 1 each 07/26/17 12:45 Cepastat Lozenge - MM Q4H PRN SORE THROAT Guaifenesin 10 ml 07/26/17 12:45 Robitussin Dm - PO Q6H PRN COUGH Hydroxyzine Pamoate 50 mg 07/26/17 12:45 08/05/17 02:45 Vistaril - PO 50 mg Q4H PRN Administration AGITATION Ibuprofen 400 mg 07/26/17 12:45 07/27/17 20:25 Motrin - PO 400 mg Q6H PRN Administration PAIN Loperamide HCl 4 mg 07/26/17 12:45 Imodium - PO Q6H PRN DIARRHEA Magnesium Citrate 300 ml 07/26/17 12:45 Citroma - PO Q48H PRN CONSTIPATION Magnesium Hydroxide 30 ml 07/26/17 12:45 Milk Of Magnesia - PO DAILY PRN CONSTIPATION Nicotine 7 mg 07/29/17 17:15 08/20/17 10:14 Nicoderm Patch - TD Not Given DAILY [place] Multivit/Folic Acid/Iron 1 tab 07/27/17 10:00 08/20/17 10:13 Vitamins (Sjr) - PO 1 tab DAILY [place] Administration Pseudoephedrine/Triprolidine 1 combo 07/26/17 12:45 Actifed - PO TID PRN NASAL CONGESTION Quetiapine Fumarate 50 mg 08/13/17 22:00 08/20/17 21:32 Seroquel - PO 50 mg HS [place] Administration Thiamine HCl 100 mg 07/26/17 22:00 08/20/17 21:32 Vitamin B1 - PO 100 mg HS [place] Administration Current Side Effect: No Lab tests ordered: No Lab tests reviewed: Yes Provider note:: Patient has complete today his treatment and met his goals, will continue to address his issues at [facility]. He gained insight into his problems, understands the negaiteve consequences of his addiction, and motivated to continue maintain abstinence. Patient identified his relapse triggers, learned copy skills in this treatment, he was encouraged to utilize all supports available to prevent relapses. Seroquel well tolerated, scripts provided , patient is stable for discharge today. Total face to face time:: 30 Mental Status Exam - Mental Status Exam Alert and Oriented to: Time, Place, Person Cognitive Function: Good Patient Appearance: Well Groomed Mood: Hopeful Affect: Appropriate, Mood Congruent Patient Behavior: Appropriate, Cooperative Speech Pattern: Clear, Appropriate Voice Loudness: Normal Thought Process: Intact, Goal Oriented Thought Disorder: Not Present Hallucinations: Denies Suicidal Ideation: Denies Homicidal Ideation: Denies Insight/Judgement: Fair Sleep: Fair Appetite: Fair Muscle strength/Tone: Normal Gait/Station: Normal
== END 2017-08-21 09:50 | disposition home or self-care (01) | DRG 772 ==
LOC: YASAS 12:19 → Y5N 12:20
PROVIDERS: ADMIT Psychiatry & Neurology Psychiatry; ATTEND Psychiatry & Neurology Psychiatry
PROC: HZ42ZZZ Group Counseling for Substance Abuse Treatment, Cognitive-Behavioral (ICD-10-PCS; principal; 2017-07-26)
DX: F11.24 Opioid dependence with opioid-induced mood disorder (principal); F11.282 Opioid dependence with opioid-induced sleep disorder; F17.210 Nicotine dependence, cigarettes, uncomplicated
CPT/HCPCS: 36415; 87389